=== PATIENT | female | born 1995 | race Caucasian/White ===

== ENCOUNTER 2018-03-26 21:59 | Emergency (ER) | payer BC, OTHER ==
[~2018-03-26] VITALS: Ht 162.6 cm; Wt 90.7 kg
--- NOTE | ~2018-03-26 | EKG ---
[address] [address] ELECTROCARDIOGRAM REPORT Name: NICOLE BOLES Room #: DEP CELIA Phillips#: [id number] Admission: 03/26/18 Attend Phys: Discharge: 03/26/18 Date of : [birth year] Report #: [id number] THIS REPORT FOR: //name// [facility] ED Test Date: 2018-03-26 Test Time: 22:17:52 Pat Name: NICOLE BOLES Department: Room: Gender: F [employer] Worker: 89 : 1995 Requested By: Reggie Lindquist Order Number: [id number] MD: Juanpablo Jenkins Measurements Intervals [place] Rate: 65 P: 10 [place]: 127 QRS: 63 QRSD: 87 T: 57 QT: 407 QTc: 424 Interpretive Statements Sinus rhythm No previous ECG available for comparison Electronically Signed On 03-28-2018 8:31:51 CDT by Juanpablo Jenkins [email or web address] <ELECTRONICALLY SIGNED> By: Juanpablo Jenkins MD 03/28/18 0831 [id number] [id number] Juanpablo Jenkins MD /EPI
[~2018-03-26 21:59] MED LIST: ACCUNEB SO1.25 MG/1; CLARITIN10 MG PO; MOBIC15 MG PO; PREDNISONE 20 M20 MG PO; QVAR8.7 G1 IH; VENTOLIN HFA 1818 GM INH
[2018-03-26] MEDS ORDERED: LEXAPRO 10 MG T10 M2 PO (22:15)
[2018-03-26] MEDS ORDERED: BUPROPION HCL150 MG PO (22:16)
[2018-03-26] MEDS ORDERED: VENTOLIN HFA 1818 GM INH (23:24)
[2018-03-26] MEDS ORDERED: IBUPROFEN 800800 MG PO (23:24)
[2018-03-26 23:55] VITALS: BP 134/65
== END 2018-03-26 23:38 | disposition home or self-care (01) ==
LOC: ER 21:59
DX: J06.9 Acute upper respiratory infection, unspecified (principal); J45.901 Unspecified asthma with (acute) exacerbation; Z91.048 Other nonmedicinal substance allergy status